=== PATIENT | female | born 1925 | race Caucasian/White ===

== ENCOUNTER 2016-08-28 19:43 | Emergency (ER) | payer MEDICARE ==
[~2016-08-28] VITALS: Ht 157.5 cm; Wt 54.0 kg
[~2016-08-28 19:43] MED LIST: ACET325S PO; ALEN70TA3 PO; ASPI325T4 PO; BISA10SU54 PR; DIPH25CA61 PO; DOCU-30 PO; ESTR0.6246 PO; HYDROCODONE PO; LEUC5TAB12 PO; MAG355OR15 PO; MAGN400O4 PO; METH2.5T PO; MULT1TAB60 PO; ONDA4TAB10 PO; OXYC5CAP4 PO; PIRO10CA PO; SERT20OR PO; methotrexate; plaquenil PO; prednisone
[2016-08-28] MEDS ORDERED: CITA20TA9 PO (20:29)
[2016-08-28] MEDS ORDERED: SODIUM CHLORIDE FLUSH 10ML SYR IVF ONE (20:30)
[2016-08-28] MEDS ORDERED: OMEP-110 PO (20:30)
[2016-08-28 20:43] LABS: ASPARTATE AMINO TRANSFERASE 16 U/L (15-37); BLOOD UREA NITROGEN 20 mg/dL (7-18)
[2016-08-28 20:50] LABS: IS PT STATUS REG ER OR PRE ER? YES
[2016-08-28] MEDS ORDERED: SODIUM CHLORIDE 0.9% 1,000ML IVBOLUS ONE (21:30)
[2016-08-28 22:17] VITALS: BP 104/69
== END 2016-08-28 22:20 | disposition home or self-care (01) ==
LOC: ED 22:01
DX: S51.802A Unspecified open wound of left forearm, initial encounter (principal); R42 Dizziness and giddiness; E86.0 Dehydration; M06.9 Rheumatoid arthritis, unspecified; W18.30XA Fall on same level, unspecified, initial encounter; Y93.89 Activity, other specified; Y92.009 Unspecified place in unspecified non-institutional (private) residence as the place of occurrence of the external cause; Y99.9 Unspecified external cause status
CPT/HCPCS: 36415; 71010; 80053; 81003; 84484; 85025; 93005; 96360; 99285; J7030